=== PATIENT | female | born 1955 | race Caucasian/White ===

== ENCOUNTER 2019-09-07 10:05 | Outpatient (CLI) | payer MEDICARE, MEDICAID ==
--- NOTE | 2019-09-07 13:59 | NM ---
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 Delayed images demonstrate increased uptake in the left knee consistent with postoperative changes of knee arthroplasty. Whole body images demonstrate increased uptake consistent with degenerative changes in the shoulders, spine and feet. Tracer excretion through the kidneys is within normal limits. IMPRESSION: No evidence of infection or loosening involving the left knee arthroplasty
== END 2019-09-07 10:06 | disposition home or self-care (01) ==
LOC: NM 10:05
PROVIDERS: ATTEND Orthopaedic Surgery
DX: T84.033A Mechanical loosening of internal left knee prosthetic joint, initial encounter (principal); Z96.652 Presence of left artificial knee joint
CPT/HCPCS: 78315; A9503